=== PATIENT | male | born 1960 | race Caucasian/White ===

== ENCOUNTER 2019-10-26 04:47 | Inpatient (IN) ==
[2019-10-26] MEDS ORDERED: ceFAZolin 1,000 MG VIAL ONE (06:09)
[2019-10-26] MEDS ORDERED: VANCOMYCIN 1,000 MG VIAL ONE (06:09)
[2019-10-26] MEDS ORDERED: ceFAZolin 1,000 MG in SYRINGE 1 EACH IV ONE (06:30)
[2019-10-26] MEDS ORDERED: VANCOMYCIN INJ 1,000 MG in SODIUM CHLORIDE 0.9% 250 ML IV ONE (06:30)
[2019-10-26] MEDS ORDERED: LACTATED RINGERS 1,000 ML IV SCH (06:30)
[2019-10-26] MEDS ORDERED: ROPIVACAINE 0.5% 30 ML VIAL ONE (06:47)
[2019-10-26] MEDS ORDERED: DEXAMETHASONE 4 MG/1 ML VIAL ONE (06:47)
[2019-10-26] MEDS ORDERED: TEMAZEPAM 7.5 MG CAPSULE PO PRN (07:12)
[2019-10-26] MEDS ORDERED: MAGNESIUM HYDROXIDE SUSP 30 ML UDCUP PO PRN (07:12)
[2019-10-26] MEDS ORDERED: ONDANSETRON 4 MG/2 ML VIAL IV PRN (07:12)
[2019-10-26] MEDS ORDERED: diphenhydrAMINE CAP 25 MG CAPSULE PO PRN (07:12)
[2019-10-26] MEDS ORDERED: PROMETHAZINE 25 MG/1 ML VIAL IM PRN (07:12)
[2019-10-26] MEDS ORDERED: LACTULOSE 20 GM/30 ML UDCUP PO PRN (07:12)
[2019-10-26] MEDS ORDERED: BISACODYL 10 MG SUPP RECTAL PRN (07:12)
[2019-10-26] MEDS ORDERED: PROPOFOL 200 MG/20 ML VIAL IV ONE (09:21)
[2019-10-26] MEDS ORDERED: LIDOCAINE 2% 5 ML VIAL ONE (09:22)
[2019-10-26] MEDS ORDERED: LIDOCAINE 1% 5 ML VIAL ONE (09:22)
[2019-10-26] MEDS ORDERED: MIDAZOLAM 2 MG/2 ML VIAL ONE (09:22)
[2019-10-26] MEDS ORDERED: BUPIVACAINE SPINAL 0.75% 2 ML AMP SPINAL ONE (09:22)
[2019-10-26] MEDS ORDERED: PHENYLEPHRINE 10 MG/1 ML VIAL IV ONE (09:23)
[2019-10-26] MEDS ORDERED: TRANEXAMIC ACID 1,000 MG/10 ML VIAL ONE (09:23)
[2019-10-26] MEDS ORDERED: fentaNYL 100 MCG/2 ML VIAL ONE (09:23)
[2019-10-26 11:27] LABS: Basophils # 0.1 10*3/uL (0.0-0.2); Basophils % 0.7 % (0.0-0.8); Eosinophils # 0.5 10*3/uL (0.0-0.87); Eosinophils % 3.6 % (0.00-10.9); Hematocrit 47.2 VOL% (42.0-52.0); Hemoglobin 15.4 GM/DL (14.0-18.0); Immature Granulocytes % 0.5 %; Immature Granulocytes Absolute 0.07 #; Lymphocytes # 3.3 10*3/uL (1.4-4.0); Lymphocytes % 22.4 % (21.2-54.2); Mean Corpuscular HGB Conc 32.6 GM/DL (32-36); Mean Corpuscular Volume 90.2 FL (87-102); Mean Platelet Volume 11.5 FL (9.6-12.0); Monocytes % 6.3 % (1.7-12.7); Neutrophils % 66.5 % (38.7-73.9); Platelet Count 187 T/CUMM (130-400); Red Blood Count 5.23 MC/CUMM (3.8-5.5); White Blood Count 14.7 T/CUMM (4-12)
[2019-10-26 11:43] LABS: Calcium 8.9 MG/DL (8.5-10.1); Osmolality,Calculated 276.7 MOS/KG (273-304)
[2019-10-26] MEDS: metFORMIN 500 MG TABLET PO SCH (11:48)
[2019-10-26] MEDS: INSULIN REGULAR 100 UNIT/ML SUBCUT SCH ×3 (11:50→20:38)
[2019-10-26] MEDS: LISINOPRIL/HCTZ 10-12.5 MG TABLET PO SCH (13:35)
[2019-10-26] MEDS: DOCUSATE SODIUM 100 MG CAPSULE PO SCH ×2 (13:35→20:38)
[2019-10-26] MEDS: FEXOFENADINE 180 MG TABLET PO SCH ×2 (13:35→20:38)
[2019-10-26] MEDS: FUROSEMIDE 40 MG TABLET PO SCH (13:35)
[2019-10-26] MEDS: NAPROXEN 500 MG TABLET PO SCH ×2 (13:35→20:38)
[2019-10-26] MEDS: MORPHINE 4 MG/1 ML VIAL IV PRN ×3 (13:36→22:08)
[2019-10-26] MEDS: ceFAZolin 2,000 MG in PREMIX 1 EACH IV SCH ×2 (13:42→22:11)
[2019-10-26] MEDS: PSEUDOEPHEDRINE 30 MG TABLET PO SCH (18:50)
[2019-10-26] MEDS: ASPIRIN EC 81 MG TABLET PO SCH (20:38)
[2019-10-26] MEDS: FONDAPARINUX 2.5 MG/0.5 ML SYRINGE SUBCUT SCH (20:38)
[2019-10-26] MEDS: SIMVASTATIN 40 MG TABLET PO SCH (20:38)
[2019-10-27] MEDS: PSEUDOEPHEDRINE 30 MG TABLET PO SCH ×4 (00:52→17:49)
[2019-10-27] MEDS ORDERED: FONDAPARINUX 2.5 MG/0.5 ML SYRINGE SUBCUT SCH (01:15)
[2019-10-27 04:54] LABS: Basophils # 0.1 10*3/uL (0.0-0.2); Basophils % 0.8 % (0.0-0.8); Eosinophils # 0.4 10*3/uL (0.0-0.87); Eosinophils % 2.8 % (0.00-10.9); Hematocrit 40.1 VOL% (42.0-52.0); Hemoglobin 13.4 GM/DL (14.0-18.0); Immature Granulocytes % 0.5 %; Immature Granulocytes Absolute 0.06 #; Lymphocytes # 2.3 10*3/uL (1.4-4.0); Lymphocytes % 17.7 % (21.2-54.2); Mean Corpuscular HGB Conc 33.4 GM/DL (32-36); Mean Corpuscular Volume 88.3 FL (87-102); Mean Platelet Volume 11.9 FL (9.6-12.0); Monocytes % 11.9 % (1.7-12.7); Neutrophils % 66.3 % (38.7-73.9); Platelet Count 171 T/CUMM (130-400); Red Blood Count 4.54 MC/CUMM (3.8-5.5); Red Cell Distribution Width 14.6 % (9.3-17.3); White Blood Count 12.7 T/CUMM (4-12)
[2019-10-27] MEDS: MORPHINE 4 MG/1 ML VIAL IV PRN (05:19)
[2019-10-27 05:21] LABS: Calcium 8.9 MG/DL (8.5-10.1); Osmolality,Calculated 273.1 MOS/KG (273-304)
[2019-10-27] MEDS: INSULIN REGULAR 100 UNIT/ML SUBCUT SCH ×4 (08:07→20:42)
[2019-10-27] MEDS: DOCUSATE SODIUM 100 MG CAPSULE PO SCH ×2 (09:27→20:42)
[2019-10-27] MEDS: FUROSEMIDE 40 MG TABLET PO SCH (09:27)
[2019-10-27] MEDS: FEXOFENADINE 180 MG TABLET PO SCH ×2 (09:27→20:42)
[2019-10-27] MEDS: NAPROXEN 500 MG TABLET PO SCH ×2 (09:27→20:42)
[2019-10-27] MEDS: LISINOPRIL/HCTZ 10-12.5 MG TABLET PO SCH (09:27)
[2019-10-27] MEDS: FONDAPARINUX 2.5 MG/0.5 ML SYRINGE SUBCUT SCH (20:41)
[2019-10-27] MEDS: ASPIRIN EC 81 MG TABLET PO SCH (20:42)
[2019-10-27] MEDS: SIMVASTATIN 40 MG TABLET PO SCH (20:42)
[2019-10-28] MEDS: PSEUDOEPHEDRINE 30 MG TABLET PO SCH ×3 (01:03→11:54)
[2019-10-28] MEDS: INSULIN REGULAR 100 UNIT/ML SUBCUT SCH ×2 (07:44→11:01)
[2019-10-28] MEDS: DOCUSATE SODIUM 100 MG CAPSULE PO SCH (08:34)
[2019-10-28] MEDS: NAPROXEN 500 MG TABLET PO SCH (08:34)
[2019-10-28] MEDS: FEXOFENADINE 180 MG TABLET PO SCH (08:34)
[2019-10-28] MEDS: LISINOPRIL/HCTZ 10-12.5 MG TABLET PO SCH (08:34)
[2019-10-28] MEDS: FUROSEMIDE 40 MG TABLET PO SCH (08:34)
[2019-10-28] MEDS: metFORMIN 500 MG TABLET PO SCH (08:34)
[2019-10-28 11:53] VITALS: BP 116/62
[2019-10-29] MEDS ORDERED: DULAGLUTIDE 0.75 MG SUBCUT SCH (07:15)
== END 2019-10-28 14:25 | disposition home health service (06) | DRG 470 ==
LOC: N.OR 04:47 → N.SDSINP 04:49 → N.3E 07:12
PROVIDERS: ADMIT Orthopaedic Surgery; ATTEND Orthopaedic Surgery